=== PATIENT | female | born 1995 | race Caucasian/White ===

== ENCOUNTER 2019-07-27 12:30 | Inpatient (IN) | payer MEDICAID ==
[~2019-07-27] VITALS: Ht 152 cm; Wt 70.3 kg
[2019-07-27 13:33] VITALS: BP 122/73
[2019-07-27] MEDS ORDERED: PREN-217 PO (13:36)
[2019-07-27] MEDS ORDERED: OXYTOCIN 30 UNITS/LACT RINGERS 500 ML IV ONE (14:57)
[2019-07-27] MEDS ORDERED: RINGERS SOLUTION,LACTATED 1,000 ML IV PRN (14:57)
[2019-07-27] MEDS ORDERED: DINOPROSTONE 10 MG VAGINAL SUPPOSITORY VG ONE (15:00)
[2019-07-27] MEDS ORDERED: METOCLOPRAMIDE HCL 5 MG/ML 2 ML VIAL IVP PRN (15:00)
[2019-07-27] MEDS ORDERED: FentaNYL CITRATE-PF 100 MCG/2 ML VIAL IVP PRN ×2 (15:00→20:45)
[2019-07-27] MEDS ORDERED: LIDOCAINE/PF 1% 30 ML VIAL INJ PRN (15:00)
[2019-07-27] MEDS ORDERED: METHYLERGONOVINE MALEATE 0.2 MG/ML VIAL IM PRN (15:00)
[2019-07-27] MEDS ORDERED: CITRIC ACID/SODIUM CITRATE 30 ML SOLUTION UDCUP PO PRN (15:00)
[2019-07-27] MEDS: RINGERS SOLUTION,LACTATED 1,000 ML IV SCH (16:20)
[2019-07-27 16:27] LABS: BASOPHILS % (AUTO) 0.3 % (0.0-2.0); EOSINOPHILS % (AUTO) 0.7 % (1.0-6.0); HEMOGLOBIN 13.1 g/dL (12.0-16.0); LYMPHOCYTES # (AUTO) 1.9 K/uL (1.0-4.8); LYMPHOCYTES % (AUTO) 18.4 % (22.0-44.0); MEAN CORPUSCULAR HEMOGLOBIN 32.8 pg (26.0-34.0); MEAN CORPUSCULAR HGB CONC 33.7 G/dL (31.0-37.0); MEAN CORPUSCULAR VOLUME 98 fL (80-100); MONOCYTES % (AUTO) 9.4 % (2.0-9.0); NEUTROPHILS # (AUTO) 7.3 K/uL (1.8-7.7); NEUTROPHILS % (AUTO) 71.2 % (40.0-70.0); PLATELET COUNT (AUTO)-OB 240 K/uL (150-450); RED BLOOD CELL COUNT(AUTO) 4.01 MIL/uL (4.00-5.20); RED CELL DISTRIBUTION WIDTH 13.6 % (11.5-14.5)
[2019-07-27] MEDS ORDERED: INFLUENZA VIRUS VACCINE QVS 2019-20 (3YR+)/PF 60 MCG/0.5 ML SYRINGE IM ONE (16:45)
[2019-07-27] MEDS ORDERED: FentaNYL CITRATE-PF 100 MCG/2 ML VIAL ONE (19:40)
[2019-07-27] MEDS ORDERED: BUPIVACAINE HCL/DEX-WATER/PF 0.75% 2 ML AMP ONE (19:40)
[2019-07-27] MEDS ORDERED: ACETAMINOPHEN 1000 MG/ISO-OSM 100 ML IV ONE (19:40)
[2019-07-27] MEDS ORDERED: MORPHINE SULFATE/PF 0.5 MG/ML 10 ML AMP ONE (19:40)
[2019-07-27] MEDS ORDERED: OXYGEN THERAPY IH SCH (20:00)
[2019-07-27] MEDS ORDERED: DEXAMETHASONE SOD PHOS 4 MG/ML VIAL IVP PRN (20:30)
[2019-07-27] MEDS ORDERED: NALBUPHINE HCL 10 MG/ML VIAL IVP PRN (20:30)
[2019-07-27] MEDS ORDERED: ONDANSETRON HCL 4 MG/2 ML VIAL IVP PRN ×2 (20:30→20:45)
[2019-07-27] MEDS ORDERED: DiphenhydrAMINE HCL 50 MG/ML VIAL IVP PRN ×2 (20:30→20:45)
[2019-07-27] MEDS ORDERED: NALOXONE HCL 0.4 MG/ML VIAL IVP PRN (20:45)
[2019-07-27] MEDS ORDERED: OXYTOCIN 20 UNITS/LACT RINGERS 1,000 ML IV ONE (22:45)
[2019-07-27] MEDS: MORPHINE SULFATE 10 MG/ML SYRINGE IVP PRN (23:37)
[2019-07-28] MEDS: ACETAMINOPHEN 1000 MG/ISO-OSM 100 ML IV SCH ×2 (04:10→09:33)
[2019-07-28] MEDS: MORPHINE SULFATE 10 MG/ML SYRINGE IVP PRN (06:48)
[2019-07-28] MEDS ORDERED: OXYGEN THERAPY IH SCH ×3 (08:00)
[2019-07-28] MEDS: RINGERS SOLUTION,LACTATED 1,000 ML IV SCH ×2 (09:33→19:52)
[2019-07-28] MEDS ORDERED: IBUPROFEN 800 MG TABLET PO PRN (16:00)
[2019-07-28] MEDS: IBUPROFEN 800 MG TABLET PO SCH (16:44)
[2019-07-28] MEDS ORDERED: *CLINICAL-GENTAMICIN DOSING CLINICAL ONE (18:45)
[2019-07-28] MEDS ORDERED: GENTAMICIN 120 MG/NACL ISO-OSM 100 ML IV SCH (18:45)
[2019-07-28] MEDS: AMPICILLIN SODIUM 2 GM/NS 100 ML IV SCH (19:51)
[2019-07-28] MEDS: CLINDAMYCIN 900 MG/D5% WATER 50 ML IV SCH (21:28)
[2019-07-28] MEDS: OxyCODONE HCL/ACETAMINOPHEN 5-325 MG TABLET PO PRN (21:29)
[2019-07-28] MEDS: MAGNESIUM HYDROXIDE SUSPENSION 30 ML UDCUP PO SCH (21:29)
[2019-07-28] MEDS: GENTAMICIN 120 MG/NACL ISO-OSM 100 ML IV SCH (22:36)
[2019-07-29] MEDS: AMPICILLIN SODIUM 2 GM/NS 100 ML IV SCH ×4 (01:32→19:58)
[2019-07-29] MEDS: IBUPROFEN 800 MG TABLET PO SCH ×4 (01:46→19:59)
[2019-07-29] MEDS: OxyCODONE HCL/ACETAMINOPHEN 5-325 MG TABLET PO PRN ×4 (04:31→19:59)
[2019-07-29] MEDS: LANOLIN 7 GM OINTMENT TP PRN ×2 (04:32→20:59)
[2019-07-29] MEDS: CLINDAMYCIN 900 MG/D5% WATER 50 ML IV SCH ×3 (04:56→21:23)
[2019-07-29] MEDS: GENTAMICIN 120 MG/NACL ISO-OSM 100 ML IV SCH ×2 (05:57→15:17)
[2019-07-29] MEDS ORDERED: OXYTOCIN 10 UNITS/ML VIAL IM ONE (05:59)
[2019-07-29] MEDS ORDERED: 0.9% SODIUM CHLORIDE 10 ML VIAL IVP ONE (05:59)
[2019-07-29] MEDS ORDERED: EPHEDrine SULFATE 50 MG/ML VIAL IM ONE (05:59)
[2019-07-29 07:06] LABS: BASOPHILS % (AUTO) 0.3 % (0.0-2.0); HEMATOCRIT 33.7 % (36-46); HEMOGLOBIN 11.3 g/dL (12.0-16.0); LYMPHOCYTES # (AUTO) 1.9 K/uL (1.0-4.8); LYMPHOCYTES % (AUTO) 13.8 % (22.0-44.0); MEAN CORPUSCULAR HEMOGLOBIN 32.6 pg (26.0-34.0); MEAN CORPUSCULAR HGB CONC 33.5 G/dL (31.0-37.0); MEAN CORPUSCULAR VOLUME 97 fL (80-100); MONOCYTES # (AUTO) 1.6 K/uL (0.1-1.0); MONOCYTES % (AUTO) 11.3 % (2.0-9.0); NEUTROPHILS # (AUTO) 10.2 K/uL (1.8-7.7); NEUTROPHILS % (AUTO) 73.6 % (40.0-70.0); PLATELET COUNT (AUTO)-OB 200 K/uL (150-450); RED BLOOD CELL COUNT(AUTO) 3.47 MIL/uL (4.00-5.20); RED CELL DISTRIBUTION WIDTH 13.9 % (11.5-14.5)
[2019-07-29] MEDS: MAGNESIUM HYDROXIDE SUSPENSION 30 ML UDCUP PO SCH ×2 (08:20→20:59)
[2019-07-29] MEDS ORDERED: PERCT PO (11:18)
[2019-07-29] MEDS ORDERED: IBUP-2070 PO (11:19)
[2019-07-29] MEDS ORDERED: DOCU-275 PO (11:20)
[2019-07-30] MEDS: RINGERS SOLUTION,LACTATED 1,000 ML IV SCH (00:44)
[2019-07-30] MEDS ORDERED: AMPICILLIN SODIUM 2 GM/NS 100 ML IV SCH ×2 (02:00→02:30)
[2019-07-30] MEDS: IBUPROFEN 800 MG TABLET PO SCH ×2 (02:00→02:42)
[2019-07-30] MEDS ORDERED: RINGERS SOLUTION,LACTATED 1,000 ML IV SCH (02:23)
[2019-07-30] MEDS: OxyCODONE HCL/ACETAMINOPHEN 5-325 MG TABLET PO PRN (02:42)
[2019-07-30] MEDS ORDERED: CLINDAMYCIN 900 MG/D5% WATER 50 ML IV SCH (05:00)
== END 2019-07-30 11:45 | disposition home or self-care (01) | DRG 540 ==
LOC: 4S 12:30 → OBSVTOIN 12:30 → 4S 07-28 01:09 → PREINTOOBSV 07-29 13:17 → PREOBSVTOIN 07-29 13:17
PROVIDERS: ADMIT Obstetrics & Gynecology; ATTEND Obstetrics & Gynecology
PROC: 10D00Z1 Extraction of Products of Conception, Low, Open Approach (ICD-10-PCS; principal; 2019-07-27)
PROC: 3E0P7VZ Introduction of Hormone into Female Reproductive, Via Natural or Artificial Opening (ICD-10-PCS; 2019-07-27)
DX: O76 Abnormality in fetal heart rate and rhythm complicating labor and delivery (principal); O41.03X0 Oligohydramnios, third trimester, not applicable or unspecified; Z3A.39 39 weeks gestation of pregnancy; Z37.0 Single live birth
CPT/HCPCS: 76805; 86850; 86900; 86901; 89060; J0131; J0290; J0690; J1580; J2270; J2274; J2590; J2765; J3010; J3490; J7120